=== PATIENT | male | born 1955 | race American Indian/Alaskan Native ===

== ENCOUNTER 2018-12-04 22:38 | Observation (INO) | payer OTHER ==
[2018-12-05] MEDS ORDERED: ASPIRIN PO ONE (00:46)
--- NOTE | 2018-12-05 01:23 | XRay Report ---
PROCEDURE: XR CHEST 1V AP TECHNIQUE: A single view of the chest was submitted. HISTORY: Chest Pain COMPARISONS: None FINDINGS: The heart size and mediastinum appear normal. The lungs are clear. Pleural fluid is not seen. The bon es and soft tissues do not show any acute changes. IMPRESSION: No acute cardiopulmonary process.. This document is electronically signed by Braxton Kong MD., December 05 2018 01:21:23 AM ET
[2018-12-05 01:31] LABS: Basophils # (Auto) 0.1 K/mm3 (0.0-0.1); Basophils % (Auto) 0.9 % (0.0-1.8); Eosinophils # (Auto) 0.2 K/mm3 (0.0-0.4); Eosinophils % (Auto) 2.7 % (0.0-4.3); Hemoglobin 13.5 gm/dl (11.8-15.2); Lymphocytes # (Auto) 2.1 K/mm3 (1.2-5.4); Lymphocytes % (Auto) 33.2 % (13.4-35.0); Mean Corpuscular HGB Conc 34 % (32-34); Mean Corpuscular Volume 80 fl (84-94); Monocytes # (Auto) 0.5 K/mm3 (0.0-0.8); Monocytes % (Auto) 8.6 % (0.0-7.3); Platelet Count 205 K/mm3 (140-440); Red Blood Count 5.01 M/mm3 (3.65-5.03); Red Cell Distribution Width 15.3 % (13.2-15.2)
[2018-12-05 02:09] LABS: BUN/Creatinine Ratio 8; Blood Urea Nitrogen 8 mg/dL (9-20); Calcium 8.8 mg/dL (8.4-10.2); Hemolysis Index 11
[2018-12-05] MEDS ORDERED: K-DUR PO ONE (04:34)
--- NOTE | 2018-12-05 04:34 | Emergency Department Report ---
HPI - General Chief Complaint: Chest Pain Time Seen by Provider: 12/05/18 03:52 - HPI HPI: Room 3 The patient is a 63-year-old male presenting with a chief complaint of chest pain. The patient states yesterday he developed substernal chest pain radiating to his left neck and back. Patient describes the pain as sharp and pinching in nature. Patient states the pain has been intermittent and associated with shortness of breath. Patient denies nausea/vomiting or diaphoresis. The patient states his last stress test occurred approximately 4 years ago and his last cardiac catheterization occurred in 2004 when he had a cardiac stent placed Location: Chest Duration: Intermittent since last night Quality: Sharp Severity: [See above] Modifying factors: [see above] Context: [see above] Mode of transportation: [not driving] ED Past Medical Hx - Past Medical History Previous Medical History?: Yes Hx Hypertension: Yes Hx Heart Attack/AMI: Yes Hx Diabetes: Yes - Surgical History Past Surgical History?: Yes Hx Cholecystectomy: Yes - Family History Family history: no significant - Social History Smoking Status: Never Smoker Substance Use Type: None (denies illicit drug use) ED Review of Systems ROS: Stated complaint: CHEST PAIN Other details as noted in HPI Constitutional: denies: diaphoresis Eyes: denies: eye pain ENT: denies: throat pain Respiratory: shortness of breath Cardiovascular: chest pain Endocrine: no symptoms reported Gastrointestinal: denies: nausea, vomiting Genitourinary: denies: dysuria Musculoskeletal: denies: back pain Neurological: denies: headache Physical Exam - Physical Exam Vital Signs: Vital Signs 12/05/18 00:44 Temperature 98 F Pulse Rate 82 Respiratory 16 Rate Blood Pressure 158/92 O2 Sat by Pulse 98 Oximetry Physical Exam: GENERAL: The patient is well-developed well-nourished male lying on stretcher not appearing to be in acute distress. [] HEENT: Normocephalic. Atraumatic. Extraocular motions are intact. Patient has moist mucous membranes. NECK: Supple. Trachea midline CHEST/LUNGS: Clear to auscultation. There is no respiratory distress noted. HEART/CARDIOVASCULAR: Regular. There is no tachycardia. There is no gallop rub or murmur. ABDOMEN: Abdomen is soft, nontender. Patient has normal bowel sounds. There is no abdominal distention. SKIN: There is no rash. There is no edema. There is no diaphoresis. NEURO: The patient is awake, alert, and oriented. The patient is cooperative. The patient has normal speech MUSCULOSKELETAL: There is no evidence of acute injury. ED Course Vital Signs 12/05/18 00:44 Temperature 98 F Pulse Rate 82 Respiratory 16 Rate Blood Pressure 158/92 O2 Sat by Pulse 98 Oximetry ED Medical Decision Making - Lab Data Result diagrams: 12/05/18 01:12 12/05/18 01:12 Laboratory Tests 12/05/18 12/05/18 12/05/18 01:12 01:12 03:35 WBC 6.2 RBC 5.01 Hgb 13.5 Hct 40.0 MCV 80 L MCH 27 L MCHC 34 RDW 15.3 H Plt Count 205 Lymph % (Auto) 33.2 Posey % (Auto) 8.6 H Eos % (Auto) 2.7 Baso % (Auto) 0.9 Lymph # 2.1 Posey # 0.5 Eos # 0.2 Baso # 0.1 Seg Neutrophils % 54.6 Seg Neutrophils # 3.4 Sodium 139 Potassium 3.1 L Chloride 99.5 Carbon Dioxide 29 Anion Gap 14 BUN 8 L Creatinine 1.0 Estimated GFR > 60 BUN/Creatinine Ratio 8 Glucose 119 H Calcium 8.8 Troponin T < 0.010 < 0.010 - EKG Data -: EKG Interpreted by Me EKG shows normal: sinus rhythm Rate: normal - EKG Data When compared to previous EKG there are: previous EKG unavailable Interpretation: nonspecific ST-T wave mike (T-wave inversion in lead aVF) - Radiology Data Radiology results: report reviewed (chest x-ray), image reviewed (chest x-ray) interpreted by me: Chest x-ray-no focal infiltrates, no pneumothorax Findings [facility] [address] [place] [address] XRay Report Signed Patient: GERALD MACK MR#: [id number] : Acct:[id number] Age/Sex: 63 / M ADM Date: 12/04/18 Loc: ED Attending Dr: Ordering Physician: ED MD KENIA Date of Service: 12/05/18 Procedure(s): XR chest 1V ap Accession Number(s): [id number] cc: ED MD KENIA Fluoro Time In Minutes: PROCEDURE: XR CHEST 1V AP TECHNIQUE: A single view of the chest was submitted. HISTORY: Chest Pain COMPARISONS: None FINDINGS: The heart size and mediastinum appear normal. The lungs are clear. Pleural fluid is not seen. The bones and soft tissues do not show any acute changes. IMPRESSION: No acute cardiopulmonary process.. This document is electronically signed by Imelda Kong MD., December 05 2018 01:21:23 AM ET Transcribed By: RB Dictated By: IMELDA KONG MD Electronically Authenticated By: IMELDA KONG MD Signed Date/Time: 12/05/18122 DD/ 1 TD/TT: 12/05/18101 - Differential Diagnosis ACS, pericarditis, GERD Critical care attestation.: If time is entered above; I have spent that time in minutes in the direct care of this critically ill patient, excluding procedure time. ED Disposition Clinical Impression: Chest pain Disposition: DC-09 OP ADMIT IP TO THIS HOSP Is pt being admited?: Yes Does the pt Need Aspirin: Yes Condition: Fair Instructions: Chest Pain (ED) Referrals: JOSE FRANKLIN MD [Primary Care Provider] - 3-5 Days Time of Disposition: 04:36 (hospitalist paged (Dr. Patricia Sullivan))
[2018-12-05] MEDS ORDERED: ASPIRIN ONE (05:02)
[2018-12-05] MEDS ORDERED: MORPHINE IV PRN (06:19)
[2018-12-05] MEDS ORDERED: LEXISCAN IV ONE ×2 (08:26→08:29)
[2018-12-05 10:41] VITALS: BP 159/87
--- NOTE | 2018-12-05 11:48 | Event Note ---
Date: 12/05/18 Lexiscan MPI showing moderate size fixed basal and mid inferior wall defect consistent with prior infarct in the RCA distribution, LVEF 60%. No ischemia No further inpatient cardiac work-up is needed. Patient is scheduled to follow- up with me at the [place] [facility] on SaturdayDecember 15 at 3:30 pm
--- NOTE | 2018-12-05 12:53 | History and Physical Report ---
History of Present Illness Date of examination: 12/05/18 Date of admission: 12/05/18 06:18 Chief complaint: Chest pain History of present illness: Patient is 63-year-old with history of hypertension, hyperlipidemia, diabetes. He presents to ED for chest pain. Chest pain is midsternal, 8 out of 10 in intensity, sharp pain, pain worse on exertion, not related to meals. This pain radiates to the neck and back. He had shortness of breath associated with chest pain. There was no Nausea, no vomiting or diaphoresis. he was evaluated in ED. Initial troponin is normal. Will admit to rule out acute coronary syndrome. Past History Past Medical History: diabetes, hypertension, hyperlipidemia Past Surgical History: cholecystectomy Social history: lives with family, full code. denies: smoking, alcohol abuse Family history: no significant family history Medications and Allergies Allergies Allergy/AdvReac Type Severity Reaction Status Date / Time No Known Allergies Allergy Verified 12/05/18 03:57 Home Medications Medication Instructions Recorded Confirmed Last Taken Type Aspirin EC [Aspirin Enteric Coated 81 mg PO QDAY #30 tablet. 12/05/18 Unknown Rx TAB] Lovastatin 40 mg PO DAILY 12/05/18 12/05/18 12/04/18 09:00 History Norvasc 10 mg PO DAILY 12/05/18 12/05/18 12/04/18 09:00 History metFORMIN 500 mg PO BID 12/05/18 12/05/18 12/04/18 History Active Meds: Active Medications Miscellaneous Medication (Lovastatin) 40 mg PO DAILY [facility] Miscellaneous Medication (Metformin) 500 mg PO BID [facility]HI Miscellaneous Medication (Norvasc) 10 mg PO DAILY [facility] Morphine Sulfate (Morphine) 2 mg IV Q4H PRN PRN Reason: Pain, Moderate (4-6) Exam - Physical Exam Narrative exam: . - Constitutional Vitals: Temp Pulse Resp BP Pulse Ox 98.3 F 64 18 159/87 96 12/05/18 10:14 12/05/18 07:30 12/05/18 10:14 12/05/18 10:14 12/05/18 05:30 General appearance: Present: no acute distress - EENT Eyes: Present: PERRL ENT: hearing intact - Neck Neck: Present: supple - Respiratory Respiratory effort: normal Respiratory: bilateral: CTA - Cardiovascular Rhythm: regular Heart Sounds: Present: S1 & S2 - Extremities Extremities: no ischemia, No edema, normal temperature, normal color - Abdominal General gastrointestinal: Present: soft, non-tender, non-distended, normal bowel sounds - Musculoskeletal Musculoskeletal: strength equal bilaterally - Neurologic Neurologic: moves all extremities, other (AAO x 3) Results - Labs CBC & Chem 7: 12/05/18 01:12 12/05/18 01:12 Labs: Abnormal lab results 12/05/18 12/05/18 Range/Units 01:12 01:12 MCV 80 L (84-94) fl MCH 27 L (28-32) pg RDW 15.3 H (13.2-15.2) % [place] % (Auto) 8.6 H (0.0-7.3) % Potassium 3.1 L (3.6-5.0) mmol/L BUN 8 L (9-20) mg/dL Glucose 119 H (75-100) mg/dL Assessment and Plan Chest pain. To r/o ACS Admit to Telemetry Aspirin daily Nitro SL prn Diabetes mellitus type 2 Fingerstick glucose QACHS Hypertension Monitor BP hyperlipidemia Full code status
[2018-12-05] MEDS ORDERED: NON-FORMULARY (Metformin 500 MG) PO SCH (13:00)
[2018-12-05] MEDS ORDERED: LOVASTATIN 40 MG PO SCH (13:00)
[2018-12-05] MEDS ORDERED: NON-FORMULARY (Norvasc 10 MG) PO SCH (13:00)
[2018-12-05] MEDS ORDERED: NORVASC PO SCH (13:00)
[2018-12-05] MEDS ORDERED: GLUCOPHAGE PO SCH (13:00)
--- NOTE | 2018-12-05 14:04 | Discharge Summary ---
Providers - Providers Date of Admission: 12/05/18 06:18 Date of discharge: 12/05/18 Attending physician: SYLWIA LOMBARDO Primary care physician: JOSE FRANKLIN Hospitalization Condition: Fair Hospital course: Patient is 63-year-old with history of hypertension, hyperlipidemia, diabetes. He presented to ED for chest pain. Chest pain is midsternal, 8 out of 10 in intensity, sharp pain, pain worse on exertion, not related to meals. He had shortness of breath associated with chest pain. He was seen and evaluated in ED. Initial troponin was normal. he was admitted to r/o acute coronary syndrome. Stress test was done and was negative. Chest pain determined to be noncardiac, due to GERD . He was subsequently discharged home. Disposition: - TO HOME OR SELFCARE - Discharge Diagnoses (1) HTN (hypertension) Status: Acute (2) Hyperlipidemia Status: Acute (3) Diabetes mellitus type 2 in obese Status: Acute (4) Chest pain Status: Acute (5) GERD (gastroesophageal reflux disease) Status: Acute Core Measure Documentation - Palliative Care Palliative Care/ Comfort Measures: Not Applicable - Core Measures Any of the following diagnoses?: none Exam - Constitutional Vitals: Temp Pulse Resp BP Pulse Ox 98.3 F 64 18 159/87 96 12/05/18 10:14 12/05/18 07:30 12/05/18 10:14 12/05/18 10:14 12/05/18 05:30 Plan Activity: advance as tolerated Diet: low fat, low cholesterol, low salt Additional Instructions: 1.Follow up with PCP in 1 week. 2.follow up with Dr. Dyer in 1 week. Follow up with: JOSE FRANKLIN MD [Primary Care Provider] - 3-5 Days Prescriptions: Aspirin EC [Aspirin Enteric Coated TAB] 81 mg PO QDAY #30 tablet.
[2018-12-05] MEDS ORDERED: PRAVACHOL PO SCH (22:00)
--- NOTE | 2018-12-05 22:21 | Treadmill Report ---
INDICATION: Chest pain. FINDINGS: The left ventricular cavity is normal in size. There is evidence of a moderate size fixed basal and mid inferior wall defect. The left ventricular ejection fraction is measured at 60%. There is normal wall motion. There is lack of uptake noted in the basal inferior wall on gated imaging. CONCLUSION: 1. No scintigraphic evidence of myocardial ischemia. 2. Moderate sized fixed basal and mid inferior wall defect consistent with a prior infarction in the right coronary artery distribution. 3. Normal left ventricular size with an ejection fraction measured at 60%. 4. Absent radioactive uptake in the basal inferior wall on gated imaging. 5. This is an intermediate risk myocardial perfusion scan associated with cardiovascular event rate of 1-3%. [facility]# [id number] JUANCARLOS/FAHAD
== END 2018-12-05 16:30 | disposition home or self-care (01) ==
LOC: ED 22:38 → 4A 12-05 06:18 → INTOOBSV 12-05 06:18
PROVIDERS: ADMIT Internal Medicine; ATTEND Internal Medicine
DX: R07.89 Other chest pain (principal); I10 Essential (primary) hypertension; E78.5 Hyperlipidemia, unspecified; E11.9 Type 2 diabetes mellitus without complications; I25.2 Old myocardial infarction
CPT/HCPCS: 36415; 71045; 78452; 80048; 84484; 85025; 93005; 93010; 93017; 99284; A9502; G0378; J2785; 96374

== ENCOUNTER 2020-08-08 09:12 | Emergency (ER) | payer SELFPAY ==
[2020-08-08] MEDS ORDERED: ASPIRIN 325 MG TAB PO ONE (09:43)
--- NOTE | 2020-08-08 10:18 | XRay Report ---
CHEST 2 VIEWS INDICATION / CLINICAL INFORMATION: Chest Pain. COMPARISON: 12/05/2018 FINDINGS: SUPPORT DEVICES: None. HEART / MEDIASTINUM: No significant abnormality. LUNGS / PLEURA: No significant pulmonary or pleural abnormality. No pneumothorax. ADDITIONAL FINDINGS: No significant additional findings. IMPRESSION: 1. No acute findings. Signer Name: Asher Roca MD Signed: 08/08/2020 10:13 AM Workstation Name: The History [id number]
--- NOTE | 2020-08-08 11:01 | Event Note ---
ED Screening Note ED Screening Note: states this morning began having CP described as a heaviness and radiates to the left arm, states it began at 5 AM states it has been occurring intermittently for 3 weeks states he saw his primary care doctor started him on metoprolol and aspirin states he has an appointment with partition setter in Sep 2019, plans for a stress test in September no fever no cough no n/v/d +mild SOB no leg swelling PMHx DM, HTN, HLD no allergies to meds non smoker This initial assessment/diagnostic orders/clinical plan/treatment(s) is/are subject to change based on patients health status, clinical progression and re- assessment by fellow clinical providers in the ED. Further treatment and workup at subsequent clinical providers discretion. Patient/guardian urged not to elope from the ED as their condition may be serious if not clinically assessed and managed. Initial orders include: CP protocol
[2020-08-08 11:32] LABS: Basophils % (Auto) 0.7 % (0.0-1.8); Eosinophils # (Auto) 0.2 K/mm3 (0.0-0.4); Eosinophils % (Auto) 3.1 % (0.0-4.3); Hematocrit 40.2 % (35.5-45.6); Hemoglobin 13.5 gm/dl (11.8-15.2); Lymphocytes # (Auto) 1.4 K/mm3 (1.2-5.4); Lymphocytes % (Auto) 26.9 % (13.4-35.0); Mean Corpuscular HGB Conc 34 % (32-34); Mean Corpuscular Volume 82 fl (84-94); Monocytes # (Auto) 0.3 K/mm3 (0.0-0.8); Monocytes % (Auto) 6.3 % (0.0-7.3); Platelet Count 196 K/mm3 (140-440); Red Blood Count 4.91 M/mm3 (3.65-5.03); Red Cell Distribution Width 15.9 % (13.2-15.2)
[2020-08-08 11:52] LABS: BUN/Creatinine Ratio 10; Blood Urea Nitrogen 12 mg/dL (9-20); Calcium 9.1 mg/dL (8.4-10.2); Hemolysis Index 5
[2020-08-08 12:11] LABS: Alanine Aminotransferase 19 units/L (7-56)
[2020-08-08 12:14] LABS: Bilirubin,Direct < 0.2 mg/dL (0-0.2)
--- NOTE | 2020-08-08 17:14 | Emergency Department Report ---
ED Chest Pain HPI - General Chief Complaint: Chest Pain Stated Complaint: CHEST PAIN PUI?: No Time Seen by Provider: 08/08/20 10:59 Source: patient Mode of arrival: Ambulatory Limitations: No Limitations - History of Present Illness Initial Comments: Chief complaint chest pain for 3 weeks HPI: This is a 64-year-old male with history of [place] status post cardiac stent, GERD, hypertension, hyperlipidemia, diabetes mellitus who presents with chest pain at night for the past 3 weeks. Patient states that his chest pain is "always at night". He feels heaviness shortness of breath worse when lying flat. When he sits up the symptoms are improved. Pain is mild to moderate. No association with exertion. His PCP has prescribed metoprolol and aspirin. Unable to obtain cardiology follow-up for stress test until September due to an active health insurance. Patient is currently pain-free now. Patient has been compliant with pantoprazole. According to electronic medical record, patient was admitted to the hospital service November 2018. Treadmill exercise myocardial perfusion scan revealed no evidence of myocardial ischemia. Fixed basal inferior wall defect consistent with prior infarction in the RCA distribution. Normal ejection fraction 60%. Normal LV size. According to cardiology impression patient has intermediate risk associated with cardiovascular event rate 1-3%. MD Complaint: chest pain -: Gradual, week(s) (3) Onset: during rest, other (Symptoms occur at night) Pain Location: substernal Pain Radiation: LUE Severity: mild, moderate Quality: heaviness Consistency: now resolved Improves With: other (Sitting up) Worsens With: other (Laying flat) Context: other (History of [place] status post cardiac stent) re: dyspnea Treatments Prior to Arrival: other (PCP initiated metoprolol and aspirin) - Related Data Home Medications Medication Instructions Recorded Confirmed Last Taken Lovastatin 40 mg PO DAILY 12/05/18 12/05/18 12/04/18 09:00 Norvasc 10 mg PO DAILY 12/05/18 12/05/18 12/04/18 09:00 metFORMIN 500 mg PO BID 12/05/18 12/05/18 12/04/18 Previous Rx's Medication Instructions Recorded Last Taken Type Aspirin EC [Halfprin EC] 81 mg PO QDAY #30 tablet. 12/05/18 Unknown Rx Allergies Allergy/AdvReac Type Severity Reaction Status Date / Time No Known Allergies Allergy Verified 12/05/18 03:57 Heart Score - HEART Score History: Slightly suspicious EKG: Normal Age: > 65 Risk factors: > 3 risk factors or hx of atherosclerotic disease Troponin: < normal limit HEART Score: 4 ED Review of Systems ROS: Stated complaint: CHEST PAIN Other details as noted in HPI Comment: All other systems reviewed and negative Constitutional: denies: fever, malaise Respiratory: shortness of breath. denies: cough Cardiovascular: chest pain ED Past Medical Hx - Past Medical History Previous Medical History?: Yes Hx Hypertension: Yes Hx Heart Attack/AMI: Yes Hx Diabetes: Yes (type 2) - Surgical History Past Surgical History?: Yes Hx Cholecystectomy: Yes - Social History Smoking Status: Never Smoker - Medications Home Medications: Home Medications Medication Instructions Recorded Confirmed Last Taken Type Aspirin EC [Halfprin EC] 81 mg PO QDAY #30 tablet. 12/05/18 Unknown Rx Lovastatin 40 mg PO DAILY 12/05/18 12/05/18 12/04/18 09:00 History Norvasc 10 mg PO DAILY 12/05/18 12/05/18 12/04/18 09:00 History metFORMIN 500 mg PO BID 12/05/18 12/05/18 12/04/18 History ED Physical Exam - General Limitations: No Limitations General appearance: alert, in no apparent distress - Head Head exam: Present: atraumatic, normocephalic - Eye Eye exam: Present: normal appearance - ENT ENT exam: Present: mucous membranes moist - Neck Neck exam: Present: normal inspection, full ROM - Respiratory Respiratory exam: Present: normal lung sounds bilaterally. Absent: respiratory distress, wheezes, rales, rhonchi - Cardiovascular Cardiovascular Exam: Present: regular rate, normal rhythm, normal heart sounds. Absent: systolic murmur, diastolic murmur, rubs, gallop - GI/Abdominal GI/Abdominal exam: Present: soft, normal bowel sounds. Absent: distended, tenderness, guarding, rebound - Rectal Rectal exam: Present: deferred - Extremities Exam Extremities exam: Present: normal inspection - Neurological Exam Neurological exam: Present: alert, oriented X3 - Psychiatric Psychiatric exam: Present: normal affect, normal mood - Skin Skin exam: Present: warm, dry, intact, normal color. Absent: rash ED Course Vital Signs 08/08/20 09:56 Temperature 98.2 F Pulse Rate 88 Respiratory 18 Rate Blood Pressure 144/86 [Right] O2 Sat by Pulse 98 Oximetry ED Medical Decision Making - Lab Data Result diagrams: 08/08/20 10:50 08/08/20 10:50 Laboratory Results - last 24 hr 08/08/20 08/08/20 08/08/20 10:50 10:50 10:50 WBC 5.2 RBC 4.91 Hgb 13.5 Hct 40.2 MCV 82 L MCH 28 MCHC 34 RDW 15.9 H Plt Count 196 Lymph % (Auto) 26.9 Simpson % (Auto) 6.3 Eos % (Auto) 3.1 Baso % (Auto) 0.7 Lymph # (Auto) 1.4 Simpson # (Auto) 0.3 Eos # (Auto) 0.2 Baso # (Auto) 0.0 Seg Neutrophils % 63.0 Seg Neutrophils # 3.3 Sodium 142 Potassium 3.3 L Chloride 102.4 Carbon Dioxide 32 H Anion Gap 11 BUN 12 Creatinine 1.2 Estimated GFR > 60 BUN/Creatinine Ratio 10 Glucose 116 H Calcium 9.1 Total Bilirubin 0.30 Direct Bilirubin < 0.2 Indirect Bilirubin 0.1 AST 19 ALT 19 Alkaline Phosphatase 67 Troponin T < 0.010 NT-Pro-B Natriuret Pep 293.6 Total Protein 7.4 Albumin 4.0 Albumin/Globulin Ratio 1.2 08/08/20 15:40 WBC RBC Hgb Hct MCV MCH MCHC RDW Plt Count Lymph % (Auto) Simpson % (Auto) Eos % (Auto) Baso % (Auto) Lymph # (Auto) Simpson # (Auto) Eos # (Auto) Baso # (Auto) Seg Neutrophils % Seg Neutrophils # Sodium Potassium Chloride Carbon Dioxide Anion Gap BUN Creatinine Estimated GFR BUN/Creatinine Ratio Glucose Calcium Total Bilirubin Direct Bilirubin Indirect Bilirubin AST ALT Alkaline Phosphatase Troponin T < 0.010 NT-Pro-B Natriuret Pep Total Protein Albumin Albumin/Globulin Ratio - EKG Data -: EKG Interpreted by Me EKG shows normal: sinus rhythm, QRS complexes, ST-T waves Rate: normal - EKG Data Interpretation: normal EKG 08/08/20 17:12 EKG obtained at 0948 EKG interpreted by me Normal sinus rhythm rate 60 bpm normal axis normal QTC prolonged ID no ST-T si gns of ischemia - Radiology Data Radiology results: report reviewed Radiology impression: No acute findings chest radiograph - Medical Decision Making This is a 64-year-old male with history of [place] status post PTCA cardiac stent, GERD, diabetes mellitus, hyperlipidemia and hypertension. Patient presents with atypical nocturnal chest pain nonexertional. He is currently pain-free. Troponin x2 -. EKG is normal. Heart score is 4 however patient received stress test here at this hospital last year which was negative for ischemia. Diagnosis at that time GERD. GERD does cooperate with nocturnal symptoms which changes with position. Patient also states that he has stomach bloat tightness at night which resolves in the morning. I do suspect GERD as a cause of his symptoms. I gave patient a copy of his sister's test results to give to his PCP. PCP is optimized his medical regimen with aspirin and metoprolol. Patient is low risk for adverse cardiac event if he is compliant with his medication. Patient states that he is compliant with his medication. He appears concerned and invested in his health. Patient understands return precautions. Referral request for cardiology follow-up faxed to [facility]. Critical care attestation.: If time is entered above; I have spent that time in minutes in the direct care of this critically ill patient, excluding procedure time. ED Disposition Clinical Impression: Chest pain, GERD (gastroesophageal reflux disease), Hyperlipidemia, HTN (hypertension), Diabetes mellitus type 2 in obese Disposition: DC-01 TO HOME OR SELFCARE Is pt being admited?: No Does the pt Need Aspirin: No Condition: Stable Instructions: Chest Pain (ED), Hypertension (ED), Diabetes Mellitus Type 2 in Adults (ED), Nonspecific Chest Pain, Adult, [id number], Food Choices for Gastroesophageal Reflux Disease, Adult Referrals: ZIGGY WARREN MD [Primary Care Provider] - 3-5 Days LISSETT LINDER MD [Staff Physician] - 3-5 Days
[2020-08-08 18:00] VITALS: BP 153/72
== END 2020-08-08 18:01 | disposition home or self-care (01) ==
LOC: ED 09:12
DX: K21.9 Gastro-esophageal reflux disease without esophagitis (principal); E78.49 Other hyperlipidemia; E11.65 Type 2 diabetes mellitus with hyperglycemia; I10 Essential (primary) hypertension; I25.2 Old myocardial infarction
CPT/HCPCS: 36415; 71046; 80048; 80076; 83880; 84484; 85025; 93005

== ENCOUNTER 2022-03-26 10:21 | Emergency (ER) | payer SELFPAY ==
--- NOTE | 2022-03-26 11:36 | XRay Report ---
CHEST 2 VIEWS INDICATION / CLINICAL INFORMATION: Chest Pain. COMPARISON: 08/08/2020 FINDINGS: SUPPORT DEVICES: None. HEART / MEDIASTINUM: No significant abnormality. LUNGS / PLEURA: No significant pulmonary or pleural abnormality. No pneumothorax. ADDITIONAL FINDINGS: No significant additional findings. IMPRESSION: 1. No acute findings. Signer Name: Jaime Johnson DO Signed: 03/26/2022 11:29 AM Workstation Name: [id number]
[2022-03-26 12:13] LABS: Basophils % (Auto) 0.6 % (0.0-1.8); Eosinophils # (Auto) 0.1 K/mm3 (0.0-0.4); Eosinophils % (Auto) 1.5 % (0.0-4.3); Hematocrit 44.4 % (35.5-45.6); Hemoglobin 14.4 gm/dl (11.8-15.2); Lymphocytes # (Auto) 1.4 K/mm3 (1.2-5.4); Lymphocytes % (Auto) 35.8 % (13.4-35.0); Mean Corpuscular HGB Conc 33 % (32-34); Mean Corpuscular Volume 82 fl (84-94); Monocytes # (Auto) 0.3 K/mm3 (0.0-0.8); Monocytes % (Auto) 7.2 % (0.0-7.3); Platelet Count 208 K/mm3 (140-440); Red Blood Count 5.45 M/mm3 (3.65-5.03); Red Cell Distribution Width 15.1 % (13.2-15.2)
[2022-03-26 12:31] LABS: Alanine Aminotransferase 47 units/L (7-56); Albumin 4.2 g/dL (3.9-5); BUN/Creatinine Ratio 11; Blood Urea Nitrogen 13 mg/dL (9-20); Calcium 8.9 mg/dL (8.4-10.2); Hemolysis Index 4
[2022-03-26] MEDS ORDERED: POTASSIUM CHLORIDE ER 20 MEQ TAB PO ONE (13:34)
[2022-03-26] MEDS ORDERED: ASPIRIN 81 MG TAB CHEW PO ONE (13:34)
--- NOTE | 2022-03-26 13:34 | Emergency Department Report ---
<TOMMIE MOREJON - Last Filed: 03/26/22 22:15> ED Chest Pain HPI - General Chief Complaint: Chest Pain Stated Complaint: SOB/CHEST PAIN/DIZZYNESS Time Seen by Provider: 03/26/22 13:29 - Related Data Home Medications Medication Instructions Recorded Confirmed Last Taken Lovastatin 40 mg PO DAILY 12/05/18 12/05/18 12/04/18 09:00 Norvasc 10 mg PO DAILY 12/05/18 12/05/18 12/04/18 09:00 metFORMIN 500 mg PO BID 12/05/18 12/05/18 12/04/18 Previous Rx's Medication Instructions Recorded Last Taken Type Aspirin EC [Halfprin EC] 81 mg PO QDAY #30 tablet. 12/05/18 Unknown Rx Magnesium Oxide [Magnesium] 200 mg PO DAILY #3 03/26/22 Unknown Rx Potassium Chloride 20 meq PO DAILY 3 Days #3 03/26/22 Unknown Rx Allergies Allergy/AdvReac Type Severity Reaction Status Date / Time No Known Allergies Allergy Verified 12/05/18 03:57 Heart Score - EKG Read Time Time EKG Completed: 22:21 EKG Read Time: 22:21 ED Past Medical Hx - Medications Home Medications: Home Medications Medication Instructions Recorded Confirmed Last Taken Type Aspirin EC [Halfprin EC] 81 mg PO QDAY #30 tablet. 12/05/18 Unknown Rx Lovastatin 40 mg PO DAILY 12/05/18 12/05/18 12/04/18 09:00 History Norvasc 10 mg PO DAILY 12/05/18 12/05/18 12/04/18 09:00 History metFORMIN 500 mg PO BID 12/05/18 12/05/18 12/04/18 History Magnesium Oxide [Magnesium] 200 mg PO DAILY #3 03/26/22 Unknown Rx Potassium Chloride 20 meq PO DAILY 3 Days #3 03/26/22 Unknown Rx ED Medical Decision Making - Lab Data Result diagrams: 03/26/22 11:30 03/26/22 20:48 ED Disposition Clinical Impression: Hypokalemia, Hypomagnesemia, Non-cardiac chest pain Chest pain Qualifiers: Chest pain type: unspecified Qualified Code(s): R07.9 - Chest pain, unspecified Hyperglycemia due to type 2 diabetes mellitus Qualifiers: Diabetes mellitus senior care insulin use: unspecified senior care insulin use status Qualified Code(s): E11.65 - Type 2 diabetes mellitus with hyperglycemia Disposition: 01 HOME / SELF CARE / HOMELESS Is pt being admited?: No Does the pt Need Aspirin: No Condition: Stable Instructions: Nonspecific Chest Pain, Adult, Diabetes Mellitus Type 2 in Adults (ED) Additional Instructions: Please make a follow-up appointment with your primary care provider to be seen within 3 to 5 days. In the meantime please take supplement as prescribed for you. Prescriptions: Magnesium Oxide [Magnesium] 200 mg PO DAILY #3 Potassium Chloride 20 meq PO DAILY 3 Days #3 Referrals: COREY WRIGHT MD [Primary Care Provider] - 3-5 Days Time of Disposition: 22:18 <DARRIN CAMPOS - Last Filed: 03/27/22 06:37> ED Chest Pain HPI - General Source: patient Mode of arrival: Ambulatory Limitations: No Limitations - History of Present Illness Initial Comments: 66-year-old male with a history of hypertension and diabetes who presents with intermittent chest pain has been going on for couple of months. Pain at the peak is rated as 5/10 in severity. Pain is on the left side of the chest. Patient reported minimal alcohol drink. No fever or chills reported. No cough noted. He also mentioned that climbing steps worsen pain and sometimes shortness of breath. Patient denies any other modifying or associated factors. Complaint: chest pain Heart Score - HEART Score History: Slightly suspicious EKG: Normal Age: > 65 Risk factors: 1-2 risk factors Troponin: < normal limit HEART Score: 3 - Critical Actions Critical Actions: 4-6 pts:12-16.6% risk of adverse cardiac event. Should be admitted ED Review of Systems ROS: Stated complaint: SOB/CHEST PAIN/DIZZYNESS Other details as noted in HPI ED Past Medical Hx - Past Medical History Hx Hypertension: Yes Hx Heart Attack/AMI: Yes Hx Diabetes: Yes (type 2) Additional medical history: [place] 2005 with cardiac stent - Surgical History Hx Cholecystectomy: Yes Additional Surgical History: coronary stent - Social History Smoking Status: Never Smoker ED Physical Exam - General Limitations: No Limitations ED Course Vital Signs 03/26/22 03/26/22 03/26/22 10:39 11:43 12:01 Temperature 98.9 F Pulse Rate 99 H 93 H 103 H Respiratory 14 22 16 Rate Blood Pressure 135/85 137/82 Blood Pressure [Left] O2 Sat by Pulse 100 98 98 Oximetry 03/26/22 03/26/22 03/26/22 13:01 14:01 15:01 Temperature Pulse Rate 120 H 87 84 Respiratory 30 H 16 13 Rate Blood Pressure 142/81 144/88 143/89 Blood Pressure [Left] O2 Sat by Pulse 96 97 99 Oximetry 03/26/22 03/26/22 03/26/22 16:01 17:01 18:01 Temperature Pulse Rate 83 75 78 Respiratory 11 L 16 23 Rate Blood Pressure 139/89 146/91 151/92 Blood Pressure [Left] O2 Sat by Pulse 96 97 97 Oximetry 03/26/22 22:45 Temperature Pulse Rate 79 Respiratory 18 Rate Blood Pressure Blood Pressure 149/89 [Left] O2 Sat by Pulse 98 Oximetry - Reevaluation(s) Reevaluation #1: 03/26/22 14:01 given potassium 40 meq PO x 1 to correct hypokalemia 2.8 mg/dl and insulin 5 units SQ for hyperglycemia and aspirin 324 mg PO x 1-- 03/26/22 14:02 Reevaluation #2: 03/26/22 14:03 While waiting for the second timed troponin pt signed to Dr Lester to continue to evaluated this patient -- pt will be ready to be discharge if second troponin is negative -- with close follow up ED Medical Decision Making - Lab Data Result diagrams: 03/26/22 11:30 03/26/22 20:48 - EKG Data -: EKG Interpreted by [place] EKG shows normal: sinus rhythm Rate: tachycardia - EKG Data 03/26/22 14:04 Noted with sinus tachycardia at a rate of [address] wave abnormality in this abnormal ECG. - Medical Decision Making Here with chest pain/pressure--differential could be but not limited to myocardial infarction, pulmonary embolism, costochondritis, anxiety, gastritis, GERD, pancreatitis, and or pyelonephritis--in order to rule out the above-- so will go ahead and order routine cardiopulmonary work-up that include troponin, EKG, chest x-ray, BNP, CKMB, and CBC, CMP and urinalysis for any correctable infectious process or electrolyte abnormality as a cause. Critical care attestation.: If time is entered above; I have spent that time in minutes in the direct care of this critically ill patient, excluding procedure time. ED Disposition Does the pt Need Aspirin: Yes
[2022-03-26] MEDS ORDERED: MAGNESIUM SULFATE 1 GM in SODIUM CHLORIDE 0.9% 50 ML IV ONE (17:39)
[2022-03-26] MEDS ORDERED: POTASSIUM CHLORIDE 10 MEQ 10 MEQ/100 ML BAG IV SCH (18:00)
[2022-03-26 21:29] LABS: BUN/Creatinine Ratio 10; Blood Urea Nitrogen 10 mg/dL (9-20); Hemolysis Index 3
[2022-03-26 22:45] VITALS: BP 149/89
--- NOTE | 2022-03-27 18:52 | Electrocardiograph Report ---
[facility] Test Date: 2022-03-26 Test Time: 10:51:54 Pat Name: GERALD MACK Department: Room: Gender: M Environmental Engineering Technician: NURSE : 1955 Requested By: ANDREA SOUZA Order Number: [id number] Reading MD: Marilu William Measurements Intervals Fowler Rate: 107 P: 119 [place]: 74 QRS: 73 QRSD: 114 T: -71 QT: 390 QTc: 522 Interpretive Statements Sinus tachycardia, followed by a short burst of atrial fibrillation LEFT BUNDLE BRANCH BLOCK No previous ECG available for comparison Electronically Signed On 03-27-2022 18:52:39 EDT by Marilu William
== END 2022-03-26 22:45 | disposition home or self-care (01) ==
LOC: ED 10:21
DX: R07.9 Chest pain, unspecified (principal); E11.65 Type 2 diabetes mellitus with hyperglycemia; E87.6 Hypokalemia; E83.42 Hypomagnesemia
CPT/HCPCS: 36415; 71046; 80048; 80053; 83735; 84484; 85025; 93005; 96365; 99284; J3475; J3480